=== PATIENT | female | born 1955 | race Caucasian/White ===

== ENCOUNTER → 2017-02-13 | Outpatient (CLI) | payer OTHER ==
[~2017-02-13] MED LIST: LEVO50TA PO
--- NOTE | 2017-02-14 15:02 | MAMMOGRAPHY REPORT ---
BILATERAL DIGITAL SCREENING MAMMOGRAM WITH CAD: 02/13/2017 CLINICAL HISTORY: Routine screening examination. TECHNIQUE: Bilateral CC and MLO views were obtained. Current study was also evaluated with a Compu ter Aided Detection (CAD) system. COMPARISON: Comparison is made to exams dated: 02/08/2016 mammogram, 02/02/2015 mammogram, 02/01/2014 ma mmogram, 01/29/2013 mammogram - [facility], 06/08/2011 mammogram, and 06/08/2011 mammog chris. BREAST COMPOSITION: There are scattered areas of fibroglandular density in both breasts. FINDINGS: 2 linear scar markers overlie the anterior left breast. There is a stable metallic biopsy marker in the upper outer middle one third of the left breast. No suspicious spiculated or irregul ar mass, architectural distortion or cluster of suspicious microcalcifications is seen. IMPRESSION: ACR BI-RADS CATEGORY 1: NEGATIVE There is no mammographic evidence of malignancy. A 1 year screening mammogram is recommended. The p atient will receive written notification of the results. Approximately 10% of breast cancers are not detected with mammography. A negative mammographic repor t should not delay biopsy if a clinically suggestive mass is present. Maureen Zavala M.D. ay/:02/13/2017 16:57:50 Cooperative Education Coordinator: Hallie CASTANON)(M), [facility] letter sent: Normal 1/2 BI-RADS Code: ACR BI-RADS Category 1: Negative
== END | disposition home or self-care (01) ==
LOC: C.MAMM 12:50
PROVIDERS: ATTEND Obstetrics & Gynecology
DX: Z12.31 Encounter for screening mammogram for malignant neoplasm of breast (principal)

== ENCOUNTER → 2017-04-02 | Outpatient (CLI) | payer OTHER ==
[2017-04-02 14:24] LABS: BLOOD UREA NITROGEN 13 mg/dl (7-18); BUN/CREATININE RATIO 17.3 (10-20); CARBON DIOXIDE 27 mmol/L (21-32); CHLORIDE 107 mmol/L (98-107); CHOLESTEROL 217 mg/dl (0-200); CREATININE 0.74 mg/dl (0.60-1.20); GLUCOSE 82 mg/dl (70-99); POTASSIUM 3.8 mmol/L (3.5-5.1); SODIUM 142 mmol/L (136-145); TRIGLYCERIDES 110 mg/dl (0-150); VERY LOW DENSITY LIPOPROT CALC 22 mg/dl
[2017-04-02 14:26] LABS: CALCIUM 9.1 mg/dl (8.5-10.1)
[2017-04-02 14:39] LABS: CHOLESTEROL/HDL RATIO 3.9; HDL CHOLESTEROL 55 mg/dl; LDL CHOLESTEROL CALCULATED 140 mg/dl
== END | disposition home or self-care (01) ==
LOC: C.LABBC 12:24
PROVIDERS: ATTEND Internal Medicine
DX: E78.5 Hyperlipidemia, unspecified (principal); E03.9 Hypothyroidism, unspecified

== ENCOUNTER → 2018-01-16 | Outpatient (CLI) | payer OTHER ==
--- NOTE | 2018-01-16 08:50 | DIAGNOSTIC IMAGING REPORT ---
L HAND MIN 3 VIEWS ROUTINE CLINICAL HISTORY: M79.646 Pain in thumb joint with movementTenderness in the thumb COMPARISON: None. DISCUSSION: Mild degenerative change of the interphalangeal joints throughout. Moderate degenerative change first carpometacarpal joint. No evidence for fracture or dislocation. Unremarkable soft tissue appearance. There is no evidence for soft tissue swelling. IMPRESSION: Minimal/mild degenerative change of the interphalangeal joints. Moderate degenerative change first carpometacarpal joint. The above report was generated using voice recognition software. It may contain grammatical, syntax or spelling errors. Electronically signed by: Darius Rios M.D. 01/16/2018 8:49 AM Dictated Date/Time: 01/16/2018 8:48 AM
== END | disposition home or self-care (01) ==
LOC: C.LAB1850 08:29
PROVIDERS: ATTEND Physician Assistant
DX: M79.645 Pain in left finger(s) (principal)

== ENCOUNTER → 2018-02-28 | Outpatient (CLI) | payer OTHER ==
--- NOTE | 2018-03-03 07:47 | MAMMOGRAPHY REPORT ---
BILATERAL DIGITAL SCREENING MAMMOGRAM TOMOSYNTHESIS WITH CAD: 02/28/2018 CLINICAL HISTORY: Routine screening. Patient has no complaints. TECHNIQUE: Breast tomosynthesis in addition to standard 2D mammography was performed. Current study was also evaluated with a Computer Aided Detection (CAD) system. COMPARISON: Comparison is made to exams dated: 02/13/2017 mammogram, 02/08/2016 mammogram, 02/02/2015 barry mogram, 02/01/2014 mammogram, 01/29/2013 mammogram - [facility], and 06/08/2011 mammogr am. BREAST COMPOSITION: There are scattered areas of fibroglandular density in both breasts. FINDINGS: There is a round circumscribed 8 mm mass within the left 3:00 anterior breast, for which ul trasound is recommended for further evaluation. This may represent a cyst. The remainder of both breasts are stable compared to prior exams, without suspicious masses, calcific ations, or areas of architectural distortion noted. Scattered bilateral benign-appearing calcificati ons are not significantly changed. Linear scar markers denote scars on the left upper outer breast. A biopsy clip is again noted within the left upper outer quadrant. IMPRESSION: ACR BI-RADS CATEGORY 0: INCOMPLETE EVALUATION: NEED ADDITIONAL IMAGING EVALUATION Left breast mass, for which additional imaging evaluation is recommended. The patient will be called to schedule an appointment. Approximately 10% of breast cancers are not detected with mammography. A negative mammographic report should not delay biopsy if a clinically suggestive mass is present. Mayra Beltrán M.D. /:02/28/2018 16:56:08 Rn Documentation: Verónica CASPER(R)(M), [facility] letter sent: Addl Imaging 0 BI-RADS Code: ACR BI-RADS Category 0: Incomplete Evaluation: Need Additional Imaging Evaluation
== END | disposition home or self-care (01) ==
LOC: C.MAMM 13:42
PROVIDERS: ATTEND Obstetrics & Gynecology
DX: Z12.31 Encounter for screening mammogram for malignant neoplasm of breast (principal); N63.20 Unspecified lump in the left breast, unspecified quadrant

== ENCOUNTER → 2018-03-06 | Outpatient (CLI) | payer OTHER ==
--- NOTE | 2018-03-06 12:40 | MAMMOGRAPHY REPORT ---
ULTRASOUND OF LEFT BREAST: 03/06/2018 CLINICAL HISTORY: Callback from screening mammogram for a circumscribed 8 mm mass seen within the lef t anterior breast on recent screening mammogram. COMPARISON: Comparison is made to exams dated: 02/28/2018 mammogram, 02/13/2017 mammogram, 02/08/2016 ma mmogram, 02/02/2015 mammogram, 02/01/2014 mammogram, and 01/29/2013 mammogram - [facility]. TECHNIQUE: Real-time targeted ultrasound of the left breast was performed. FINDINGS: Real-time, high-resolution targeted ultrasound was performed of the left lateral anterior b reast in the region of the mammographic mass. In the left 2:00 subareolar breast, there is a round c ircumscribed hypoechoic mass which measures 8 x 6 x 8 mm. This corresponds with the mammographic mas s and is indeterminant, with differential including a complicated cyst versus a solid mass. Recommen d ultrasound guided aspiration versus biopsy for further evaluation. IMPRESSION: ACR BI-RADS CATEGORY 4: SUSPICIOUS - FOLLOW-UP RECOMMENDED Circumscribed hypoechoic 8 mm mass in the left 2:00 breast on ultrasound, which corresponds with the mammographic mass. The mass is indeterminant, with differential including a complicated cyst versus solid mass. Recommend ultrasound-guided aspiration for further evaluation, with conversion to biopsy if the mass does not aspirate. A phone call was made to the physician's office to confirm faxed results were received. The patient was verbally notified of the results. She tentatively scheduled the biopsy before leaving the [facility]. Mayra Beltrán M.D. ah/:03/06/2018 11:59:44 Locomotive Engineer: Mayra Beltrán MD, [facility] letter sent: Abnormal 4/5 BI-RADS Code: ACR BI-RADS Category 4: Suspicious
== END | disposition home or self-care (01) ==
LOC: C.MAMM 11:09
PROVIDERS: ATTEND Internal Medicine
DX: R92.8 Other abnormal and inconclusive findings on diagnostic imaging of breast (principal); N63.20 Unspecified lump in the left breast, unspecified quadrant

== ENCOUNTER → 2018-03-13 | Outpatient (CLI) | payer OTHER ==
--- NOTE | 2018-03-14 07:47 | MAMMOGRAPHY REPORT ---
ASPIRATION LEFT BREAST: 03/13/2018 CLINICAL HISTORY: Left 2:00 breast mass. PATIENT CONSENT: The procedure and risks of ultrasound-guided cyst aspiration versus core needle biop sy were discussed in full with the patient. Both oral and written consents were obtained. PROCEDURE DESCRIPTION: With ultrasound guidance, aseptic technique, and 1% lidocaine as a local anest hetic, the mass of concern in the left 2:00 subareolar breast was aspirated to completion. Benign ty pe yellow-brown fluid was obtained and discarded. Direct pressure was applied to the site immediatel y post procedure and hemostasis was achieved. The patient tolerated the procedure without complicati on. COMPARISON: Comparison is made to exams dated: 03/13/2018 ultrasound biopsy, 03/06/2018 ultrasound, 02/03 mammogram, 02/13/2017 mammogram, 02/08/2016 mammogram, and 02/02/2015 mammogram - [facility]. IMPRESSION: ASPIRATION Successful ultrasound-guided aspiration of the left 2:00 breast mass. Given that the mass completely aspirated, it is consistent with a benign cyst. The aspirated fluid was discarded. Recommend routi ne bilateral screening mammograms in one year. Mayra Beltrán M.D. ah/:03/13/2018 08:44:57 Coffee Weigher: Verónica CASTANON)(M), [facility] [address]
== END | disposition home or self-care (01) ==
LOC: C.MAMM 08:13
PROVIDERS: ATTEND Internal Medicine
DX: N63.20 Unspecified lump in the left breast, unspecified quadrant (principal)

== ENCOUNTER 2018-11-10 07:56 | Observation (INO) ==
--- NOTE | 2018-10-31 15:03 | PAT Medication Instructions ---
Medication Instructions Date of Service October 31, 2018 Home Medications levothyroxine 75 mcg PO QAM Take morning of surgery With a small sip of water, OTHERWISE NOTHING TO EAT OR DRINK AFTER MIDNIGHT: levothyroxine 75 mcg PO QAM Other Notes If you have any questions please call us at [phone] or [phone] or [phone] or [phone]
--- NOTE | 2018-11-03 09:57 | Anesthesiology Consultation ---
Date of Service November 03, 2018 Assessment & Plan (1) Encounter for pre-operative examination: Chart Review Chart Review: Acceptable Risk for Surgery and Patient seen in Pre Admission Testing Consults Requested none Teaching & Discussion Pre-Anesthesia Teaching/Discussion Notes: Instructed NPO after midnight before surgery, except medications with 15 cc of water. Medication instructions provided according to the PAT guidelines. History Surgery Operation Date: 11/10/18 07:30 Proposed Procedures p Abdominoplasty with Liposuction of Abdomen and Flanks - Diana Pierson MD Height/Weight Height: 5 ft 2 in Weight: 76.3 kg Allergies Allergy/AdvReac Type Severity Reaction Status Date / Time cephalexin Allergy Mild Rash Unverified 10/24/18 07:56 oxycodone Allergy Unknown itchy Unverified 10/24/18 07:56 BLEPH Allergy Mild irritates Uncoded 10/24/18 07:56 eye POLYMYCIN B SULFATE Allergy Mild irritates Uncoded 10/24/18 07:56 eye POLYMYCIN B TRIMETHOPRIM Allergy Mild irritates Uncoded 10/24/18 07:56 eye Medications Home Medications Medication Instructions Recorded Confirmed Last Taken levothyroxine 75 mcg PO QAM 10/24/18 10/24/18 Unknown Past Medical History Medical History Environmental allergies Hypothyroidism Seasonal allergies Past Surgical History Surgical History History of tonsillectomy and adenoidectomy Hx of arthroscopic knee surgery right Hx of colonoscopy Hx of dilation and curettage Hx of hysterectomy total Hx of wisdom tooth extraction Past Anesthesia History No Hx of Anesthesia Complications and No Family Hx of Anesthesia Complications History of PONV No Motion Sickness Screening History of Motion Sickness: No Social History Smoking Status: Never smoker Do You Dip or Chew Tobacco: No Hx Alcohol Use: Yes Alcohol type: beer, wine and hard liquor alcohol intake frequency: a few times a week Hx Substance Use: No Exercise / Class Metabolic Activity II 4-5 Yardwork/Stairs/Walk up hill (Walks a few times a week. Able to climb FOS. Denies CP or FOS. ) Review of Systems Patient denies chest pain, shortness of breath, dyspnea on exertion, reflux, cough, wheezing, palpitations. +joint pain (hands) Physical Exam Vital Signs BP: 143/83 P: 70 R: 16 T: 97.8 SPO2: 97% on RA ENMT Thyromental Distance: > or= 3.5 Finger Breadths (3.5) Mallampati Class: II Neck normal visual inspection and trachea midline; neck extension not limited Respiratory normal respiratory effort Auscultation: lungs clear to auscultation bilaterally Cardiovascular Rate/Rhythm: regular rate and regular rhythm Heart Sounds: no murmur Vessels: no carotid bruit Psychiatric Orientation: alert and oriented x 3 Testing Electrocardiogram Date: 11/03/18 Findings: + SB @ (56) Laboratory Results Laboratory Tests 11/03/18 11/03/18 11/03/18 10:15 10:15 10:15 WBC 7.29 Hgb 13.7 Hct 41.0 Plt Count 275 PT 10.7 INR 1.1 APTT 29.5 Sodium 141 Potassium 4.0 Chloride 107 Carbon Dioxide 29 BUN 13 Creatinine 0.77 Glucose 102 H
[~2018-11-10 07:56] MED LIST changes: +CLINDAMYCIN 600 MG/54 ML BAG IV SCH; -LEVO50TA PO; +LR 15ML/HR IV SCH
[2018-11-10] MEDS ORDERED: KETOROLAC 30 MG/ML VIAL IV PRN (09:11)
[2018-11-10] MEDS ORDERED: fentaNYL citrate 100 MCG/2 ML VIAL IV PRN (09:11)
[2018-11-10] MEDS ORDERED: ONDANSETRON INJ 2 MG/ML 2 ML VIAL IV PRN ×2 (09:11→14:04)
[2018-11-10] MEDS ORDERED: ATROPINE SULFATE 0.1 MG/ML 10ML SYR IV PRN (09:11)
[2018-11-10] MEDS ORDERED: MIDAZOLAM HCL 1 MG/ML 2ML VIAL ONE (10:00)
[2018-11-10] MEDS ORDERED: fentaNYL citrate 100 MCG/2 ML VIAL ONE (10:00)
[2018-11-10] MEDS ORDERED: EPINEPHrine INJ 1 MG/ML AMP ONE (10:42)
[2018-11-10] MEDS ORDERED: LIDOCAINE HCL 1% 20 ML VIAL ONE (10:43)
[2018-11-10] MEDS ORDERED: BUPIVACAINE 0.25% 30 ML VIAL ONE (10:43)
[2018-11-10] MEDS ORDERED: LIDOCAINE/EPINEPHRINE 1% 20 ML VIAL ONE (10:43)
[2018-11-10] MEDS ORDERED: LIDOCAINE 2% JELLY 5 ML TUBE ONE (10:58)
[2018-11-10] MEDS ORDERED: ACETAMINOPHEN 1000 MG/100 ML IV IV ONE (10:58)
--- NOTE | 2018-11-10 11:05 | History & Physical Bridge Note ---
Date of Service November 10, 2018 History & Physical Bridge Note I have examined the patient, reviewed the History & Physical and in the interval since the performance of the History & Physical I have noted the following changes of clinical significance: no changes noted
[2018-11-10] MEDS ORDERED: KETAMINE HCL INJ 50 MG/ML 10 ML VIAL ONE (11:24)
[2018-11-10] MEDS ORDERED: HYDROmorphone INJ 2 MG/ML SYR/VIAL ONE (11:24)
--- NOTE | 2018-11-10 14:00 | Post Operative Brief Note ---
Immediate Post Op Note v1 Date of Surgery November 10, 2018 Pre & Post Diagnosis Operation Date: 11/10/18 09:50 Pre-Op Diagnosis: Encounter for Cosmetic Surgery Post-Op Diagnosis: Encounter for Cosmetic Surgery Procedure Operation Date: 11/10/18 09:50 Actual Procedures p Abdominoplasty with Liposuction of Abdomen and Flanks(Not Applicable) - Diana Pierson MD Surgeon Diana Pierson MD Cotton Header Lilli Ferreira PA-C Estimated Blood Loss 25 Findings Consistent with Post-Op Diagnosis Drains Jin-Roman Drain (15fr round)
[2018-11-10] MEDS ORDERED: DiphenhydrAMINE HCL 50 MG/ML VIAL IV PRN (14:04)
[2018-11-10] MEDS ORDERED: ACETAMINOPHEN 325 MG TAB PO PRN (14:04)
[2018-11-10] MEDS ORDERED: MoRPHine SULFATE 2 MG/ML CARP IV PRN (14:04)
[2018-11-10] MEDS ORDERED: PROMETHAZINE HCL 12.5 MG in SODIUM CHLORIDE 0.9% 50 ML IV PRN (14:04)
[2018-11-10] MEDS ORDERED: MoRPHine SULFATE 4 MG/ML 1 ML CARP\\VIAL IV PRN ×2 (14:04)
[2018-11-10] MEDS ORDERED: LORazepam 0.5 MG TAB PO PRN (14:04)
[2018-11-10] MEDS ORDERED: HYDROCODONE/ACETAMOPHEN 5/325MG TAB PO PRN (14:07)
[2018-11-10] MEDS ORDERED: DiphenhydrAMINE HCL 50 MG/ML VIAL ONE (14:12)
[2018-11-10] MEDS ORDERED: raNITIdine HCl 25 MG/ML VIAL ONE (14:12)
[2018-11-10] MEDS ORDERED: ONDANSETRON INJ 2 MG/ML 2 ML VIAL ONE (14:12)
[2018-11-10] MEDS ORDERED: PROPOFOL IV EMULSION 10 MG/ML 20 ML VIAL IV ONE (14:12)
[2018-11-10] MEDS ORDERED: LIDOCAINE HCL 2% 2 ML VIAL/AMP(20MG/ML) INFIL ONE (14:12)
[2018-11-10] MEDS ORDERED: METOCLOPRAMIDE HCL INJ 5 MG/ML 2 ML VIAL ONE (14:12)
[2018-11-10] MEDS ORDERED: D5W AND 1/2NSS 1,000 ML IV SCH (14:15)
--- NOTE | 2018-11-10 14:25 | XRay Report ---
Study: Abdomen HISTORY: Incorrect instrument count FINDINGS: Visualized components of the abdomen show no evidence for radiopaque foreign body. Low pelv is is not seen due to technical difficulties. IMPRESSION: No evidence for a radiopaque foreign bodies. Limited visibility of the low pelvis. Electronically signed by: Darius Rios M.D. 11/10/2018 2:24 PM
--- NOTE | 2018-11-10 14:30 | Operative Report ---
Post Operative Report Pre & Post Diagnosis Operation Date: 11/10/18 09:50 Pre-Op Diagnosis: Encounter for Cosmetic Surgery Post-Op Diagnosis: Encounter for Cosmetic Surgery Procedure Operation Date: 11/10/18 09:50 Actual Procedures Abdominoplasty with Liposuction of Abdomen and Flanks(Not Applicable) - Diana Pierson MD Surgeon Diana Pierson MD Security Associate Lilli Ferreira PA-C Estimated Blood Loss 25 Findings Consistent with Post-Op Diagnosis Specimens none Drains SHIRA x2 Anesthesia Type General Complications none Indications 63 year old female desiring cosmetic improvement in the appearance of her abdomen Description of Procedure The risks, benefits, and alternatives of procedure were explained the patient agreed and signed consent. She was identified and marked in the preoperative holding area. She was brought to the operating room where she was positioned supine and placed under anesthesia without incident. Jane catheter was placed. SCDs were placed. Surgical site was prepped and draped sterilely. A timeout procedure was performed.Preoperatively planned incision had been marked with mid portion of the transverse lower abdominal incision was marked 6.5 mm above the vulvar commissure and extended from anterior superior iliac spine bilaterally. Planned areas of liposuction were marked as well. 1% lidocaine with epinephrine was used to inject the small stab incisions for liposuction access. Tumescent needle was placed and tumescent fluid was instilled into the central upper abdomen (epigastric area) and bilateral flanks. A total of 800 mL of tumescent fluid was placed. I then used first a 4-mm liposuction cannula to perform pretunneling in each of the areas of planned liposuction. Subsequent to this, a suction was applied and a total of 700 ml was suctioned from the abdomen and flanks using a fanning technique and staying deep to Dhara's fascia when possible in order to avoid contour irregularities and compromise to the skin while performing the abdominoplasty. Once I was satisfied with the thickness of the skin, I then proceeded to open the abdominoplasty incision. This was performed using a 15 blade scalpel to make the incision through skin and into the underlying dermis. The incision was deepened using electrocautery and was carried down to anterior abdominal wall. Flap was raised off of the anterior abdominal wall using electrocautery and achieving hemostasis throughout using electrocautery and 3-0 Vicryl ties. Dissection was carried cephalad to the umbilicus. The umbilical incision was made using a 15 blade scalpel. I then split the lower abdominal flap up the midline to the umbilical incision and the umbilicus was carefully dissected out using electrocautery. The stalk remained viable throughout this procedure. Subsequent to this, this dissection was performed widely at the level of the umbilicus and then, a narrower dissection was performed above the umbilicus to the xiphoid process using electrocautery. There was some subscarpal fat that was still visible and this was directly resected. Once I was able to expose the rectus diastasis, plication was performed using 0 Prolene [id number] sutures, both superior and inferior to the umbilicus. This was reinforced using an 0 Prolene running suture, both superiorly and inferiorly. Following this, the mons pubis was directly defatted using electrocautery. Once hemostasis was assured, the bed was flexed to facilitate closure. The upper abdominal skin flap was sutured under tension in the midline to the mons pubis. The skin flaps were then marked for resection, making sure that they were under adequate tension, but still a bit to facilitate wound closure. The flaps were removed using a 15 blade scalpel to make the incision, which was then deepened using electrocautery through dermis, subcutaneous fat, and Dhara's fascia. Some residual subscarpal fat was identified and directly resected using electrocautery. The umbilical position was then marked in an inverted triangle position. 0.25% Marcaine plain was used to inject the rectus fascia. Wound was inspected one last time for hemostasis and 15-Panamanian Andrew drains were passed through separate stab incisions in the mons pubis and placed into the wound bed. During closure, some small contour irregularities were identified in the periumbilical area and some additional liposuction was performed using a 2 mm canula to fan out the area. Closure was then begun in a lateral to medial direction using 2-0 Vicryl Dhara's fascia sutures, 2-0 Vicryl deep dermal sutures, 2-0 PDO running Quill suture and 3-0 Monocryl subcuticular suture. The umbilical incision was made using a 15 blade scalpel and deepened with electrocautery. The umbilicus was identified and able to be brought through the incision. It was inset using 4-0 chromic half buried horizontal mattress sutures. It remained viable throughout. Dermabond Prineo was applied to the lower abdominal incision. Xeroform was packed into the umbilicus and placed around the drains. Dry dressings were applied followed by a surgical bra and abdominal binder. The procedure was tolerated well. The patient was awakened and transferred to the recovery room in satisfactory condition. I attest to the content of the Intraoperative Record and any orders documented therein. Any exceptions are noted below.
--- NOTE | 2018-11-10 14:43 | XRay Report ---
KUB CLINICAL HISTORY: Incorrect surgical instrument count. FINDINGS: An AP, portable, supine abdominal radiograph is obtained. No prior studies are available fo r comparison at the time of dictation. There is a nonobstructed abdominal bowel gas pattern. No evide nce of intraperitoneal free air is seen on this supine image. Mild colonic fecal retention is noted. There is no radiographic evidence of retained surgical implement. No abnormal abdominal calcification s are seen. The visualized bony structures appear intact. IMPRESSION: There is no radiographic evidence of retained surgical implement. Electronically signed by: Joselo Junior M.D. 11/10/2018 2:41 PM
--- NOTE | 2018-11-10 15:43 | Anesthesiology Progress Note ---
Date of Service November 10, 2018 Anesthesia Post Procedure Vital Signs Vital Signs: Temp Pulse Pulse Resp BP Pulse Ox 11/10/18 15:35 36.2 C L 75 20 138/80 95 11/10/18 15:25 73 16 145/84 H 96 11/10/18 15:15 36.4 C L 72 12 145/85 H 97 11/10/18 15:05 36.2 C L 71 12 137/77 98 11/10/18 14:55 36.2 C L 75 17 132/79 96 11/10/18 14:45 72 16 125/75 99 11/10/18 14:35 82 16 125/75 98 11/10/18 14:28 36.5 C 82 16 148/86 H 97 11/10/18 08:25 36.8 C 78 18 131/89 96 Notes Mental Status: alert / awake / arousable Patient Amnestic to Procedure: Yes Nausea / Vomiting: adequately controlled Pain: adequately controlled Airway Patency, RR, SpO2: stable & adequate BP & HR: stable & adequate Hydration State: stable & adequate Anesthetic Complications: no major complications apparent
[2018-11-11] MEDS ORDERED: LEVOTHYROXINE SODIUM 75 MCG TABLET PO SCH (06:30)
--- NOTE | 2018-11-11 07:56 | Surgery Progress Note ---
Date of Service November 11, 2018 Assessment & Plan (1) Lipodystrophy: s/p abdominoplasty with suction assisted lipectomy of abdomen and flanks 1. felling well. able to ambulate. has good pain control. Will d/c home today with f/u in office. Post-op instructions were reviewed with the patient Present on Admission?: Yes Subjective Patient feeling well and offers no concerns. Has voided since removal of catheter. Has ambulated. Physical Exam 2 Vital Signs (Past 24 Hours): Last Vital Signs Temp 36.8 C 11/11/18 06:52 Pulse 74 11/11/18 06:52 Resp 18 11/11/18 06:52 BP 126/77 11/11/18 06:52 Pulse Ox 94 11/11/18 06:52 Constitutional: WD/WN, vitals as above no acute distress Skin: + incision (CDI. drains with bloody and serous output)
--- NOTE | 2018-11-11 08:22 | Anesthesiology Progress Note ---
Date of Service November 11, 2018 Anesthesia Post Procedure Vital Signs Vital Signs: Temp Pulse Pulse Resp BP Pulse Ox 11/11/18 08:10 36.8 C 74 85 18 126/77 94 11/11/18 06:52 36.8 C 74 18 126/77 94 11/11/18 03:14 36.7 C 85 16 113/72 95 11/10/18 23:29 36.8 C 79 18 124/79 98 11/10/18 22:34 94 11/10/18 22:33 90 11/10/18 21:35 95 11/10/18 20:00 36.5 C 72 20 125/76 95 11/10/18 17:56 36.8 C 67 20 122/74 92 11/10/18 16:58 36.4 C L 70 16 119/75 91 11/10/18 16:28 36.4 C L 66 20 145/82 H 90 11/10/18 16:00 36.4 C L 67 16 133/64 96 11/10/18 15:35 36.2 C L 75 20 138/80 95 11/10/18 15:25 73 16 145/84 H 96 11/10/18 15:15 36.4 C L 72 12 145/85 H 97 11/10/18 15:05 36.2 C L 71 12 137/77 98 11/10/18 14:55 36.2 C L 75 17 132/79 96 11/10/18 14:45 72 16 125/75 99 11/10/18 14:35 82 16 125/75 98 11/10/18 14:28 36.5 C 82 16 148/86 H 97 11/10/18 08:25 36.8 C 78 18 131/89 96 Pain Intensity Abdomen: Pain Intensity: 0 Notes Mental Status: alert / awake / arousable and participated in evaluation Patient Amnestic to Procedure: Yes Nausea / Vomiting: adequately controlled Pain: adequately controlled Airway Patency, RR, SpO2: stable & adequate BP & HR: stable & adequate Hydration State: stable & adequate Anesthetic Complications: no major complications apparent and Pt Satisfied with anesthetic care
[2018-11-11] MEDS ORDERED: MULTIVITAMIN TAB PO SCH (09:00)
--- NOTE | 2018-11-11 11:06 | Discharge Summary ---
Date of Service November 11, 2018 Admission HPI Per Admitting Provider per admitting H&P Admission Exam Per Admitting Provider per admitting H&P Principal Diagnosis lipodystrophy encounter for cosmetic surgery Discharge Exam Constitutional WD/WN, vitals as above no acute distress Skin + incision (CDI. drains with bloody and serous output) Discharge Data Allergies Allergy/AdvReac Type Severity Reaction Status Date / Time cephalexin Allergy Mild Rash Unverified 11/10/18 08:24 oxycodone Allergy Unknown itchy Unverified 11/10/18 08:24 BLEPH Allergy Mild irritates Uncoded 11/10/18 08:24 eye POLYMYCIN B SULFATE Allergy Mild irritates Uncoded 11/10/18 08:24 eye POLYMYCIN B TRIMETHOPRIM Allergy Mild irritates Uncoded 11/10/18 08:24 eye Procedures Performed Operation Date: 11/10/18 09:50 Actual Procedures p Abdominoplasty with Liposuction of Abdomen and Flanks(Not Applicable) - Diana Pierson MD Hospital Course (1) Lipodystrophy: Patient presented to [facility] for cosmetic surgery. She was taken to the OR and underwent abdominoplasty with suction assisted lipectomy of abdomen and flanks. She tolerated the procedure well and there were no complications. On POD#1 the patient had her Jane catheter removed. She was able to void. She was ambulating and tolerating a regular diet. On exam, her drains had appropriate output. Her VSS and incision CDI. Patient was discharged home with instructions to follow-up in the office. t Total Time Total Time Spent Total Time Spent (In Minutes): 15 Total Time Includes: Examination of the Patient, Discharge Planning and Medication Reconciliation Discharge Plan Discharge Items Patient Disposition: Home - Self-Care Reason For Visit: Encounter for Cosmetic Surgery Discharge Diagnosis: s/p abdominoplasty with suction assisted lipectomy of abdomen and flanks Discharge Goals: Decrease discomfort Activity: As commented below Non-emergency contact: Surgeon Call non-emergency contact if: your pain is not controlled, you have a fever and your wound has increased redness Follow-up/Referrals: Luis Mack MD [Primary Care Provider] - Diet: Regular Addtl Provider Instructions: ACTIVITY RECOMMENDATIONS: __Normal activities _x_No bending, lifting or straining __No driving __Driving allowed when you are off pain medications _x_Walking permitted __You should have help at home for ___ days DRESSINGS: __No dressings required _x_Keep dressings dry/in place until first office visit __Remove dressings ___ and leave dressings off __Apply ice ___ days __Remove dressings and reapply garment __Apply antibiotic ointment (Bacitracin, Neosporin, etc) to wounds 3-4 times/ day for 10 days BATHING: _x_Keep dressings dry _x_Sponge bathing permitted __Showering permitted _x_No swimming, hot tubs or soaking in a tub MEDICATIONS: Resume previous medications unless instructed otherwise by your surgeon. _x_Do not use aspirin, Motrin, Advil or Ibuprofen as these may promote bleeding. Please use Tylenol. _x_Prescription(s) provided: pain medication was provided at your last office visit OTHER INSTRUCTIONS: _x_Record drain output 2-3 times per day SPECIAL CARE INSTRUCTIONS: * It is normal to have a mild fever after surgery. If your temperature is higher than 101.5 degrees F, please call the office at [phone]. * Constipation is a typical side effect of pain medication. An over-the- counter stool softener will help relieve this. * Leaking around surgical drains may occur and should not cause concern. Sometimes these drains become clogged. If this happens, remove the bulb and milk the clot out of the tube, then replace the bulb. * Drainage from wounds after liposuction is normal and should be expected. Garments will become soiled. You should protect furniture and bedding. This drainage should mostly subside within 2-3 days. Leave garments in place unless instructed to remove them. * If you have unusual drainage from a wound or are concerned you have an infection or have any questions or concerns, please call the office at [phone]. FOLLOW UP VISIT: If not already scheduled, please call the office, , when you return home after surgery to schedule an appointment to be seen in _2__ days. Prescriptions: Continue levothyroxine 75 mcg Capsule 75 mcg PO QAM RF: 0 Stand-Alone Forms: My [facility]/Other Patient Handouts: Surgery Prevent DVT After, Tube Jin Roman Drainage Care Discharge Orders: Discharge Order (Routine); Ordered 11/11/18 Ordered By: Lilli Ferreira Admission Data Admit Date/Time: 11/10/18 14:32 Attending Provider: Diana Pierson Admit Provider: Diana Pierson Primary Care Provider: Luis Mack Service: Surgical Services Other Pending Studies at Discharge: No DC Date/Time DO NOT enter until pt leaves facility: 11/11/18 10:05
== END 2018-11-11 10:05 | disposition home or self-care (01) ==
LOC: 3E 07:56 → ASU 07:56